=== PATIENT | female | born 1950 | race Caucasian/White ===

== ENCOUNTER → 2017-08-03 | Outpatient (CLI) | payer MEDICARE, BC ==
--- NOTE | 2017-08-03 15:22 | RAD ---
DATE: 08/03/2017 EXAM: MAMMO [facility] LT HISTORY: Pain in the outer left breast. COMPARISON: 12/23/2016 and 10/19/2015. This study was interpreted with the benefit of Computerized Aided Detection (CAD). FINDINGS: No discrete mass or malignant appearing microcalcifications are seen. There are benign calcifications noted. The left axilla is unremarkable. Breast Density: SCATTERED The breast parenchyma shows scattered fibroglandular densities. Breast parenchyma level B. Impression: No mammographic features suspicious for malignancy are identified. Even so, ultrasound of the outer left breast at the area of pain is recommended. Left breast ultrasound: Sonographic interrogation of the outer left breast was performed. No solid or cystic mass is detected. IMPRESSION: No sonographic abnormality is detected. BI-RADS CATEGORY: 1 NEGATIVE RECOMMENDED FOLLOW-UP: CLIN FOLLOW UP IMAGING CLINICALLY INDICATED PQRS compliance statement: Patient information was entered into a reminder system with a target due date for the next mammogram. Mammography is a sensitive method for finding small breast cancers, but it does not detect them all and is not a substitute for careful clinical examination. A negative mammogram does not negate a clinically suspicious finding and should not result in delay in biopsying a clinically suspicious abnormality. "Our facility is accredited by the [employer] Mammography [employer]."
== END | disposition home or self-care (01) ==
LOC: MAMMO 14:16
PROVIDERS: ATTEND Family Medicine
DX: N64.4 Mastodynia (principal); R92.1 Mammographic calcification found on diagnostic imaging of breast; R92.8 Other abnormal and inconclusive findings on diagnostic imaging of breast
CPT/HCPCS: 76641; G0206; G0279; 77061; 77065

== ENCOUNTER → 2020-06-04 | Outpatient (CLI) | payer MEDICARE, OTHER ==
--- NOTE | 2020-06-04 16:45 | RAD ---
INDICATION: 69 years of age asymptomatic female patient presents for screening mammography. TECHNIQUE: Full field craniocaudal and mediolateral oblique images of both breasts were obtained using digital technique with tomosynthesis and also analyzed with computer-aided detection software. COMPARISON: 12/23/2016, 08/03/2017 . BREAST COMPOSITION: Category A: The breasts are predominantly fatty. FINDINGS: Benign calcifications are present. No suspicious masses, microcalcifications or architectural distortion is present to suggest malignancy in either breast. The visualized axillae are unremarkable. IMPRESSION: No mammographic evidence of malignancy. RECOMMENDATION: Annual screening mammography is recommended, unless clinically indicated sooner based on symptoms or change in physical exam. BIRADS 2: BENIGN Electronically signed by: Umer Marcos MD (06/04/2020 4:42 PM) [email or web address]
== END | disposition home or self-care (01) ==
LOC: MAMMO 11:33
PROVIDERS: ATTEND Family Medicine
DX: Z12.31 Encounter for screening mammogram for malignant neoplasm of breast (principal)
CPT/HCPCS: 77063; 77067

== ENCOUNTER → 2021-07-30 | Outpatient (CLI) | payer MEDICARE, OTHER ==
--- NOTE | 2021-07-30 17:21 | RAD ---
Bilateral digital screening 2-D and 3-D (digital breast tomosynthesis) mammogram: Reason for examination: Routine screening. Comparison: Mammograms from 06/04/2020 and 12/23/2016. Interpretation was made with the benefit of CAD. FINDINGS: Breast density: Category A. Breast tissue is almost entirely fatty. No suspicious breast mass, malignant appearing calcifications, or architectural distortion is seen. IMPRESSION: No evidence of malignancy. Assessment: BI-RADS 1. Negative. Recommendation: Routine screening mammograms. The patient will receive a letter with the results in the mail. Patient information will be entered i nto the mammography reminder system with a target recall date for the next mammogram. A reminder katia er will be generated. Electronically signed by: Cesilia Brower MD (07/30/2021 5:18 PM) [email or web address]
== END ==
LOC: MAMMO 10:33
PROVIDERS: ATTEND Family Medicine
DX: Z12.31 Encounter for screening mammogram for malignant neoplasm of breast (principal)
CPT/HCPCS: 77063; 77067